=== PATIENT | female | born 1990 | race Caucasian/White ===

== ENCOUNTER 2018-09-13 17:13 | Emergency (ER) | payer BC ==
[2017-06-05 08:45] VITALS: Wt 62.1 kg
[~2018-09-13 17:13] MED LIST: ACE3 PO; ASCO-188 PO; HYDR2TAB4 PO; IBUP800T37 PO; PNV11TAB; PREN-161 PO
--- NOTE | 2018-09-13 17:21 | ER Report ---
History and Physical Time Seen By MD: 17:21 HPI/ROS CHIEF COMPLAINT: Shoulder dislocation HISTORY OF PRESENT ILLNESS: This is a 27-year-old female presents to the emergency department for a left shoulder dislocation. Patient states that she was just driving in her car, moved her arm and dislocated her left shoulder. She's had several dislocations of the shoulder before, has had an MRI and is slated to have surgery in the spring. Patient states this is the most painful dislocation that she's had. Patient was escorted to the room. She denies any other injuries. She does have full CMS distal to the dislocation. No nausea or vomiting. REVIEW OF SYSTEMS: Respiratory: No cough, no dyspnea. Cardiovascular: No chest pain, no palpitations. Gastrointestinal: No vomiting, no abdominal pain. Musculoskeletal: As above. Allergies: Coded Allergies: acetaminophen (Verified Allergy, Intermediate, HIVES, 09/13/18) RASH diphenhydramine (Verified Allergy, Intermediate, HIVES, 09/13/18) RASH guaifenesin (Verified Allergy, Intermediate, HIVES, 09/13/18) RASH Home Meds Discontinued Reported Medications Vits #93/Iron Fum/Fa ( FORMULA TABLET) 1 Each Tablet, 1 EACH PO QDAY 12/06/16 Past Medical/Surgical History The patient has a past medical surgical history of , with teeth extraction, frequent left shoulder dislocations. Reviewed Nurses Notes: Yes Hx Smoking: No Smoking Status: Never Smoker Exposure to Second Hand Smoke?: No Hx Substance Use Disorder: No Constitutional Vital Sign - Last 24 Hours 09/13/18 18:33 Pulse 80 B/P (MAP) 120/69 (86) Pulse Ox 94 O2 Delivery Room Air Physical Exam General Appearance: The patient is alert, has no immediate need for airway protection and no current signs of toxicity, tearful. Eyes: Pupils equal and round no injection. Respiratory: Chest is non tender, lungs are clear to auscultation. Cardiac: regular rate and rhythm. Gastrointestinal: Abdomen is soft and non tender, no masses, bowel sounds normal. Musculoskeletal: Neck: Neck is supple and non tender. Extremities eyes deformity to the left shoulder, it appears to be a anterior dislocation there is a scalloped area to the left shoulder. Skin: No rashes or lesions. DIFFERENTIAL DIAGNOSIS: After history and physical exam differential diagnosis was considered for dislocation. Medical Decision Making EKG/Imaging Imaging CCESSION #: [id number] EXAMINATION: Left shoulder radiographs 2 views HISTORY: Left shoulder pain. COMPARISON: 01/27/2017. FINDINGS: Two views of the left shoulder are obtained. Bones: No evidence of acute fracture. Joint spaces: Anterior dislocation of the left humeral head. Acromioclavicular joint space is maintained. Hardware: None. Soft tissues/visualized lungs: Negative. IMPRESSION: Anterior dislocation of the left humeral head. Report Dictated By: Abner Esquivel MD at 09/13/2018 5:57 PM Report E-Signed By: Abner Esquivel MD at 09/13/2018 5:59 PM WSN:[email or web address] Location: [facility] Patient: Jt Mcacbe : 1990 Visit/Account:[id number] Date of Sevice: 09/13/2018 SHOULDER MIN 2 VIEWS LEFT Indication: Postreduction. Comparison: X-ray done earlier in the day. Findings: 3 views of the left shoulder. The previous dislocation has been reduced. The reduction is anatomic. No indication of fracture. No bony lesion or periosteal abnormality. Soft tissues are unremarkable. IMPRESSION: 1. Successful reduction of the previous shoulder dislocation. No discrete indication of fracture. Report Dictated By: Sourav Otto at 09/13/2018 7:13 PM Report E-Signed By: Sourav Otto at 09/13/2018 7:15 PM WSN:[id number] ED Course/Re-evaluation Clinical Indication for ER IV: IV Access ED Course The patient was admitted to a room. A history and physical were obtained. Differential diagnoses were considered. IV was started. A left shoulder x-ray was obtained, showing an anterior dislocation. CMS was intact distal to the dislocation. I did use the Valenzuela technique with a positive shoulder reduction. Patient was also given 50 g IV fentanyl just prior to slowly reducing the shoulder. Patient had full CMS intact distal to the injury after the reduction. Patient was placed in a sling, she was given 1 hydrocodone here and 2 to go home with. She was also encouraged to take ibuprofen or Tylenol as needed for pain control. I did recommend following up with Dr. Manrique as this is her surgeon slated for the surgery in the spring, I did recommend touching bases with him as he may want to consider surgery sooner than later. Patient exposed understanding. She was discharged home. No other questions or concerns at this time. Procedure: Dislocation reduction: The left shoulder was reduced in the usual fashion using the Valenzuela technique without complications. Post reduction the patient's neurovascular exam is normal. Post reduction x-ray demonstrates reduction of the joint to the anatomic position. The procedure was performed by myself. Decision to Disposition Date: Sep 13, 2018 Decision to Disposition Time: 19:06 Depart Departure Latest Vital Signs Vital Signs Date Time Temp Pulse Resp B/P (MAP) Pulse Ox O2 Delivery O2 Flow Rate FiO2 09/13/18 18:33 80 120/69 (86) 94 Room Air Impression: Primary Impression: Dislocation of left shoulder joint Condition: Improved Disposition: HOME OR SELF-CARE Referrals: MARCIAL MANRIQUE MD 1 Week Patient Instructions: Shoulder Dislocation (ED) Additional Instructions: Where your sling or shoulder immobilizer until you follow up with Dr. Manrique, I would encourage her to call Sunday to schedule a follow-up appointment. Would also recommend taking ibuprofen or Tylenol as needed for discomfort. Continue with your regular medications. Drink plenty of water. Get plenty of rest. If you have any increased numbness or tingling or any other concerns please return to the emergency department immediately for reevaluation. You were given 2 hydrocodone to take home, he can take these every 4-6 hours as needed for severe pain. Problem Qualifiers Primary Impression: Dislocation of left shoulder joint Encounter type: initial encounter Qualified Codes: S43.005A - Unspecified dislocation of left shoulder joint, initial encounter LUIS MANUEL GALDAMEZP-BC Sep 13, 2018 17:21
[2018-09-13] MEDS ORDERED: fentaNYL CITR 100 MCG/2 ML AMP IVP ONE (17:30)
[2018-09-13] MEDS ORDERED: NS(*) 0.9% 1000 ML BAG 1,000 ML IV ONE (17:30)
--- NOTE | 2018-09-13 18:01 | RADIOLOGY IMAGING REPORT ---
FACILITY: [facility] PATIENT NAME: Jt Mccabe : 1990 MR: [id number] V: [id number] EXAM DATE: ORDERING PHYSICIAN: LUIS MANUEL GALDAMEZ TECHNOLOGIST: Location: [facility] Patient: Jt Mccabe : 1990 Visit/Account:[id number] Date of Sevice: 09/13/2018 EXAMINATION: Left shoulder radiographs 2 views HISTORY: Left shoulder pain. COMPARISON: 01/27/2017. FINDINGS: Two views of the left shoulder are obtained. Bones: No evidence of acute fracture. Joint spaces: Anterior dislocation of the left humeral head. Acromioclavicular joint space is maint ained. Hardware: None. Soft tissues/visualized lungs: Negative. IMPRESSION: Anterior dislocation of the left humeral head. Report Dictated By: Abner Esquivel MD at 09/13/2018 5:57 PM Report E-Signed By: Abner Esquivel MD at 09/13/2018 5:59 PM WSN:[email or web address]
[2018-09-13 18:33] VITALS: BP 120/69
[2018-09-13] MEDS ORDERED: APAP/HYDROCODONE 325/5 TAB PO ONE (19:10)
[2018-09-13] MEDS ORDERED: ACET/HYDROC 5/325MG TH ER ONLY 2 TAB/BOTTLE PO ONE (19:10)
--- NOTE | 2018-09-13 19:18 | RADIOLOGY IMAGING REPORT ---
[place] [facility] [place] NAME: Jt Mccabe : 1990 MR: [id number] V: [id number] EXAM DATE: ORDERING PHYSICIAN: LUIS MANUEL GALDAMEZ TECHNOLOGIST: Location: [facility] [place] Patient: Jt Mccabe : 1990 Visit/Account:[id number] Date of Sevice: 09/13/2018 SHOULDER MIN 2 VIEWS LEFT Indication: Postreduction. Comparison: X-ray done earlier in the day. Findings: 3 views of the left shoulder. The previous dislocation has been reduced. The reduction is anatomic. No indication of fracture. No b deja lesion or periosteal abnormality. Soft tissues are unremarkable. IMPRESSION: 1. Successful reduction of the previous shoulder dislocation. No discrete indication of fracture. Report Dictated By: Sourav Otto at 09/13/2018 7:13 PM Report E-Signed By: Sourav Otto at 09/13/2018 7:15 PM WSN:[id number]
== END 2018-09-13 19:17 | disposition home or self-care (01) ==
LOC: ER 17:24
DX: S43.005A Unspecified dislocation of left shoulder joint, initial encounter (principal)
CPT/HCPCS: 23650; 73030; 96361; 96374; 99284; A4565; J3010; J7030

== ENCOUNTER → 2019-01-29 | Outpatient (CLI) | payer BC ==
[2017-06-05 08:45] VITALS: BMI 29.0
[~2019-01-29] MED LIST changes: +DIPH-911 PO; +PREN-127 PO; +PYRI25TA18 PO
[2019-01-29 16:18] LABS: PLATELET COUNT, AUTOMATED 268 K/uL (150-450)
== END ==
LOC: LAB 15:08
PROVIDERS: ATTEND Student in an Organized Health Care Education/Training Program
DX: Z34.91 Encounter for supervision of normal pregnancy, unspecified, first trimester (principal)
CPT/HCPCS: 36415; 81001; 84439; 84443; 84481; 85025; 86592; 86703; 86762; 86787; 86850; 86900; 86901; 87088; 87340

== ENCOUNTER → 2019-02-10 | Outpatient (CLI) | payer BC ==
[2017-06-05 08:45] VITALS: BMI 29.0
== END ==
LOC: LAB 08:05
PROVIDERS: ATTEND Student in an Organized Health Care Education/Training Program
DX: Z34.91 Encounter for supervision of normal pregnancy, unspecified, first trimester (principal)
CPT/HCPCS: 87491; 87591

== ENCOUNTER 2019-02-18 15:19 | Outpatient (RCR) | payer BC ==
[2017-06-05 08:45] VITALS: BMI 29.0
--- NOTE | 2018-11-21 18:23 | PT INITIAL EVALUATION ---
MEDICAL DIAGNOSIS: P/O left shoulder scope with posterior & anterior labral repair, and capsule plication TREATMENT DIAGNOSIS: same DATE OF ONSET: 11/06/18 SUBJECTIVE: Jt Mccabe presents to physical therapy status post L shoulder scope with posterior & anterior labral repair and capsule plication on November 06, 2018. She reports that the first week following the surgery was extremely painful; however, she reports that since that week the pain has been minimal to none. She reports that she was given the precautions to keep the shoulder in the brace for 2 more weeks along with no lifting or actively moving the shoulder or elbow. REHAB PROBLEM LIST: Increased Pain Decreased ROM Decreased Strength Decreased Endurance Decreased Function Decreased ADL's PREVIOUS MEDICAL HISTORY: See EMR OCCUPATION: OT OBJECTIVE: Incisions site (portals) are doing well and are healing well without any signs or symptoms of infection Posture: She demonstrates normal posture while sitting or standing. ROM: PROM of L shoulder: Flexion: 110 degrees, ER: neutral, IR: 90 degrees, abduction: NT. PROM of R shoulder: flexion: 180 deg, abduction: 180 deg, ER: 100 degrees, IR: 90 deg, true abduction: 170 degrees. Strength: Did not test due to recent surgical intervention Palpation: TTP: She was not tender to palpation over the anterior, lateral, or medial joint on the L shoulder Special Tests: L scapular mobility: moderately to severely restricted superiorly, inferiorly, medially, laterally. ASSESSMENT: Ty will benefit from skilled physical therapy addressing the listed impairments based on healing parameters to return to prior level of function. Furthermore, she demonstrated significant improvement in L scapular mobility following manual. Short Term Goals 8 weeks: Pt will demonstrate full PROM-AROM of L shoulder in all directions to improve function and QOL. 12 weeks: Pt will demonstrate full AROM of L shoulder, full RTC and periscapular strength, and has returned to prior level of function. Patient's Goals return to normal, full ROM, and full strength PLAN: Patient to be seen for Manual Therapy/STM/MET Strengthening/condition Ice/Heat Range of Motion Spinal Stabilization Work Hardening/Cond Stretching Iontophoresis Neuromuscular Re-ed Closed Chain Program Electrical Stim Home Exercise Program Therapeutic Activities 2-3x/week for 12 weeks If you have any questions, comments, or concerns about this report or plan, please contact me at . Thank you, Andrade Madrigal, PT, DPT MTDD
--- NOTE | 2018-12-18 10:53 | PT PLAN OF CARE ---
Physician: Marko Walters MD Patient is being seen: 2-3x/week Therapist: Andrade Madrigal, PT, DPT Medical Diagnosis: P/O left shoulder scope with posterior & anterior labral repair, and capsule Treatment Diagnosis: same Date of Onset: 11/06/18 Date of Initial Evaluation: 11/21/18 Date patient was last seen: 12/17/18 Number of treatments: 10 Number of cancellations/No shows: 0 INTERVENTIONS: Manual Therapy/STM/MET Strengthening/condition Ice/Heat Range of Motion Spinal Stabilization Work Hardening/Cond Stretching Iontophoresis Neuromuscular Re-ed Closed Chain Program Electrical Stim Home Exercise Program Therapeutic Activities GOALS: 8 weeks: Pt will demonstrate full PROM-AROM of L shoulder in all directions to improve function and QOL. 12 weeks: Pt will demonstrate full AROM of L shoulder, full RTC and periscapular strength, and has returned to prior level of function. PATIENT'S GOAL: return to normal, full ROM, and full strength Status of Patient's Goals: Progressing Patient Compliance: Good Prognosis: Excellent Reasons for continuing therapy: This is a progress note for Jt Mccabe. She reports that she is doing well. She reports that she feels like her shoulder mobility is doing better. She denies any pain. She reports that she feels like she is moving her arm more and guarding it less. He continues to demonstrate increased accessory mobility of her L scapulae and has returned to normal mobility, increased PROM in all directions; however, continues to have tight muscular end feels, and increased tolerance to isometrics as she no longer has pain with isometric contraction targeting her L shoulder RTC and deltoids. We will continue to improve range of motion, strength, and return to prior level based on healing parameters. Posture: She demonstrates normal posture while sitting or standing. ROM: PROM of L shoulder: Flexion: 140 degrees, ER: 45 degrees with elbow at side, IR: 90 degrees, abduction: 95 deg, scaption: 180 degrees. PROM of R shoulder: flexion: 180 deg, abduction: 180 deg, ER: 100 degrees, IR: 90 deg, true abduction: 170 degrees. Strength: Did not test due to recent surgical intervention Special Tests: L scapular mobility: NIL superiorly, inferiorly, medially, laterally. If you have any questions, please contact me at [phone]. Thank you, Andrade Madrigal, PT, DPT MTDD
--- NOTE | 2019-01-28 16:52 | PT PLAN OF CARE ---
Physician: Marko Walters MD Patient is being seen: 2x/week Therapist: Andrdae Madrigal, PT, DPT Medical Diagnosis: P/O left shoulder scope with posterior & anterior labral repair, and capsule Treatment Diagnosis: same Date of Onset: 11/06/18 Date of Initial Evaluation: 11/21/18 Date patient was last seen: 01/28/19 Number of treatments: 20 Number of cancellations/No shows: 0 INTERVENTIONS: Manual Therapy/STM/MET Strengthening/condition Ice/Heat Range of Motion Spinal Stabilization Work Hardening/Cond Stretching Iontophoresis Neuromuscular Re-ed Closed Chain Program Electrical Stim Home Exercise Program Therapeutic Activities GOALS: 8 weeks: Pt will demonstrate full PROM-AROM of L shoulder in all directions to improve function and QOL. 12 weeks: Pt will demonstrate full AROM of L shoulder, full RTC and periscapular strength, and has returned to prior level of function. PATIENT'S GOAL: return to normal, full ROM, and full strength Status of Patient's Goals: Progressing Patient Compliance: Good Prognosis: Excellent Reasons for continuing therapy: This is a progress note for Jt Mccabe. She reports that she continues to do well without any pain. She states that her anatomy of her L shoulder continues to be different than her R shoulder and notices it when shaving or just moving her arm in any direction. She also reports that it feels like it gets stuck in the end ranges of flexion. She reports that she has been consistent on all of her exercises to improve range of motion and strength.She demonstrates improvements with her PROM-AROM; however, her mechanics continues to not be the same as her R shoulder. With any motion, her L shoulder will rotate posteriorly without moving anterior then superiorly then posteriorly resulting in increased scapular winging and decreased motion due to being blocked by the GH joint. The last few sessions, we have been working to loosening the anterior portion of her GH joint so that her joint can move anteriorly then superiorly then posteriorly versus directly going posteriorly resulting in poor scapular and shoulder mechanics reducing her PROM- AROM in her L shoulder. She demonstrates significant improvements with her scapulohumeral rhythm and scapular strength but continues to be blocked by the tightness within her anterior capsule and not allowing for correct GH joint mechanics. She continues to be diligent with her stretches and range of motion exercises. We will continue to decrease tightness in the anterior capsule, restore GH joint mechanics, improve PROM-AROM to full motions, and return her strength to prior level of function to improve QOL. Posture: She demonstrates normal posture while sitting or standing. ROM: PROM of L shoulder: Flexion: 155 degrees, ER: 75 degrees with elbow at side, IR: 90 degrees, abduction: 110 deg, scaption: 180 degrees. PROM of R shoulder: flexion: 180 deg, abduction: 180 deg, ER: 100 degrees, IR: 90 deg, true abduction: 170 degrees. AAROM of L shoulder: Flexion: 125 deg, abduction: 120 deg, scaption: 125 deg. AROM of L shoulder: flexion: 120 deg, abduction: 95 deg, scaption: 110 degrees. Strength: flexion, abduction, scaption: 4/5. IR: 5/5. ER: 4-/5. If you have any questions, please contact me at [phone]. Thank you, Andrade Madrigal, PT, DPT ARYA
== END 2019-02-19 ==
LOC: PT 15:19
PROVIDERS: ATTEND Orthopaedic Surgery
DX: Z47.89 Encounter for other orthopedic aftercare (principal); M25.512 Pain in left shoulder
CPT/HCPCS: 97161

== ENCOUNTER 2019-03-24 16:45 | Outpatient (RCR) | payer BC ==
[2017-06-05 08:45] VITALS: BMI 29.0
--- NOTE | 2019-02-20 17:57 | PT PLAN OF CARE ---
Physician: Marko Walters MD Patient is being seen: 2x/week Therapist: Andrade Madrigal PT, DPT Medical Diagnosis: P/O left shoulder scope with posterior & anterior labral repair, and capsule Treatment Diagnosis: same Date of Onset: 11/06/18 Date of Initial Evaluation: 11/21/18 Date patient was last seen: 02/20/19 Number of treatments: 26 Number of cancellations/No shows: 0 Physician: Marko Walters MD Patient is being seen: 2x/week Therapist: Andrade Madrigal PT, DPT Medical Diagnosis: P/O left shoulder scope with posterior & anterior labral repair, and capsule Treatment Diagnosis: same Date of Onset: 11/06/18 Date of Initial Evaluation: 11/21/18 Date patient was last seen: 01/28/19 Number of treatments: 20 Number of cancellations/No shows: 0 INTERVENTIONS: Manual Therapy/STM/MET Strengthening/condition Ice/Heat Range of Motion Spinal Stabilization Work Hardening/Cond Stretching Iontophoresis Neuromuscular Re-ed Closed Chain Program Electrical Stim Home Exercise Program Therapeutic Activities GOALS: 8 weeks: Pt will demonstrate full PROM-AROM of L shoulder in all directions to improve function and QOL. 12 weeks: Pt will demonstrate full AROM of L shoulder, full RTC and periscapular strength, and has returned to prior level of function. PATIENT'S GOAL: return to normal, full ROM, and full strength Status of Patient's Goals: Progressing Patient Compliance: Good Prognosis: Excellent Reasons for continuing therapy: This is a progress note for Jt Mccabe. She reports that she feels like the range is getting better. She reports that she feels like she can do her hair easier and put on and take off sweaters much easier. She also reports 0/10 pain and states that it has never been painful. She reports that she continues to stretch diligently each and every day. She is starting to make some significant gains in her PROM-AROM as her glenohumeral joint is starting to roll and spin correctly within the joint; however, it does continue to have some restrictions with the joint. She has also demonstrated some significant gains with her accessory joint mobility. She continues to progress well with RTC and periscapular strength. She continues to demonstrate significant improvements with her scapulohumeral rhythm. Lastly, she continues to demonstrate improvements with her AROM; however, she loses the mechanics around 120 degrees. We will continue to decrease tightness in the anterior capsule, restore GH joint mechanics, improve PROM-AROM to full motions, and return her strength to prior level of function to improve QOL. Posture: She demonstrates normal posture while sitting or standing. ROM: PROM of L shoulder: Flexion: 168 degrees, ER: 80 degrees with elbow at side, IR: 90 degrees, abduction: 140 deg, scaption: 180 degrees. PROM of R shoulder: flexion: 180 deg, abduction: 180 deg, ER: 100 degrees, IR: 90 deg, true abduction: 170 degrees. AAROM of L shoulder: Flexion: 160 deg, abduction: 140 deg, scaption: 175 deg. AROM of L shoulder: flexion: 150 deg, abduction: 130 deg, scaption: 130 degrees. Strength: flexion, abduction, scaption: 4/5. IR: 5/5. ER: 4/5. If you have any questions, please contact me at [phone]. Thank you, Andrade Madrigal, PT, DPT ARYA
[2019-03-26] MEDS ORDERED: ONDA4VIA3 INJ (10:43)
[2019-03-26] MEDS ORDERED: PROM25VI14 IV (11:47)
[2019-03-26] MEDS ORDERED: ONDA4TAB97 PO (12:05)
== END 2019-03-24 18:00 | disposition home or self-care (01) ==
LOC: PT 16:45
PROVIDERS: ATTEND Orthopaedic Surgery
DX: Z47.89 Encounter for other orthopedic aftercare (principal); M25.512 Pain in left shoulder

== ENCOUNTER → 2019-03-26 | Outpatient (CLI) | payer BC ==
[2017-06-05 08:45] VITALS: BMI 29.0
[~2019-03-26] MED LIST changes: +ONDA4TAB97 PO; +ONDA4VIA3 INJ; +PROM25VI14 IV
[2019-03-26 10:27] LABS: PLATELET COUNT, AUTOMATED 282 K/uL (150-450)
== END ==
LOC: LAB 10:16
PROVIDERS: ATTEND Student in an Organized Health Care Education/Training Program
DX: R11.12 Projectile vomiting (principal)
CPT/HCPCS: 36415; 85025

== ENCOUNTER → 2019-04-21 | Outpatient (CLI) | payer BC ==
[2017-06-05 08:45] VITALS: BMI 29.0
--- NOTE | 2019-04-21 15:35 | RADIOLOGY IMAGING REPORT ---
FACILITY: [facility] PATIENT NAME: Jt Mccabe : 1990 MR: [id number] V: [id number] EXAM DATE: [id number] ORDERING PHYSICIAN: WERNER GOOD TECHNOLOGIST: Location: [facility] Patient: Jt Mccabe : 1990 Visit/Account:[id number] Date of Sevice: 04/21/2019 EXAMINATION: Transabdominal OB Ultrasound >14 wks with Anatomic Survey 04/21/2019 10:09 AM History: Anatomical COMPARISON: None FINDINGS: Intrauterine gestations: one presentation: vertex heart rate: 143 bpm Amniotic fluid index: 13.2 cm Largest amniotic fluid pocket 3.9 cm Placenta: Anterior without previa. Placental cord insertion is normal. Uterus: gravid, otherwise normal Maternal adnexa: negative Cervix: Grossly closed but not well seen. Transvaginal imaging was not done. Gestational Parameters: BPD: 4.6 cm 20 weeks 0 days, 83rd percentile HC: 17.4 cm 20 weeks 0 days, 78th percentile AC: 14.2 cm 19 weeks 4 days, 59th percentile FL: 2.9 cm 19 weeks 1 day, 39th percentile Average ultrasound age (AUA): 19 weeks 5 days Estimated gestational age by LMP: 19 weeks 1 day Estimated weight (EFW): 290 grams +/- 42 grams EFW for LMP percentile: 61 Anatomic Survey: Intracranial structures, nose and lips, 4-chamber heart and outflow tracts, stomach, kidneys, urinary bladder, spine, 3-vessel cord and cord insertion are unremarkable. Two upper and two lower extremiti es visualized. IMPRESSION: 1. Single live intrauterine gestation; estimated ultrasound age 19 weeks 5 days ([facility] 09/10/2019) which is within range of error with expected dates. 2. Unremarkable anatomic survey. 3. Cervix was grossly closed but not well seen. Transvaginal imaging was not done. Report Dictated By: Apollo Tompkins MD at 04/21/2019 3:19 PM Report E-Signed By: Apollo Tompkins MD at 04/21/2019 3:31 PM [id number]
== END ==
LOC: RAD 10:03
PROVIDERS: ATTEND Student in an Organized Health Care Education/Training Program
DX: Z02.9 Encounter for administrative examinations, unspecified (principal)

== ENCOUNTER → 2019-06-26 | Outpatient (CLI) | payer BC ==
[2017-06-05 08:45] VITALS: BMI 29.0
[2019-06-26 15:47] LABS: PLATELET COUNT, AUTOMATED 243 K/uL (150-450)
== END ==
LOC: LAB 14:26
PROVIDERS: ATTEND Student in an Organized Health Care Education/Training Program
DX: Z34.92 Encounter for supervision of normal pregnancy, unspecified, second trimester (principal)
CPT/HCPCS: 36415; 82950; 85025